=== PATIENT | female | born 1945 | race Caucasian/White ===

== ENCOUNTER 2024-01-05 06:06 | Day surgery (SDC) | payer MEDICARE ==
[~2024-01-05] VITALS: Ht 157.5 cm; Wt 62.7 kg
[~2024-01-05 06:06] MED LIST: LEVO50TA5 PO; LIDOCAINE 3.5 % 1ML OPHTH TOPICAL GEL OU ONE; ROSU20TA61 PO
[2024-01-05] MEDS ORDERED: LIDOCAINE 1% SDV 5ML VIAL As Ordered ONE (06:37)
[2024-01-05] MEDS ORDERED: fentaNYL 100 MCG/2 ML INJECTION As Ordered ONE (07:09)
[2024-01-05] MEDS ORDERED: MIDAZOLAM INJ 2MG/2ML VIAL As Ordered ONE (07:09)
[2024-01-05] MEDS ORDERED: POVIDONE-IODINE 5% OPHTH PREP SOL 30ML As Ordered ONE (07:19)
[2024-01-05] MEDS: mitoMYcin 0.2 MG/VIAL KIT FOR OPHTHALMIC USE As Ordered ONE (07:40)
[2024-01-05] MEDS: TOBRADEX OPHTH OINT 3.5 GM As Ordered ONE (07:40)
[2024-01-05 07:50] VITALS: BP 118/63; TEMP 97.4; O2SAT 96
== END 2024-01-05 08:10 | disposition home or self-care (01) ==
LOC: M SDC 06:06
PROVIDERS: ATTEND Ophthalmology
DX: H40.9 Unspecified glaucoma (principal); E03.9 Hypothyroidism, unspecified; E78.00 Pure hypercholesterolemia, unspecified; Z79.890 Hormone replacement therapy; Z79.899 Other long term (current) drug therapy; Z90.710 Acquired absence of both cervix and uterus
CPT/HCPCS: 66183; C1783; J2250; J3010; J7315

== ENCOUNTER 2024-04-26 12:16 | Day surgery (SDC) | payer MEDICARE ==
[~2024-04-26] VITALS: Ht 157.5 cm; Wt 60.4 kg
[~2024-04-26 12:16] MED LIST changes: +BRIM0.2S13; +CITRTAB18 PO; +XALA0.007
[2024-04-26] MEDS ORDERED: MIDAZOLAM INJ 2MG/2ML VIAL As Ordered ONE (14:21)
[2024-04-26] MEDS ORDERED: fentaNYL 100 MCG/2 ML INJECTION As Ordered ONE (14:21)
[2024-04-26] MEDS: mitoMYcin 0.2 MG/VIAL KIT FOR OPHTHALMIC USE As Ordered ONE (14:35)
[2024-04-26] MEDS: LIDOCAINE 1% SDV 5ML VIAL As Ordered ONE (14:40)
[2024-04-26] MEDS: LIDOCAINE 4% TOPICAL SOLN 50 ML BTL As Ordered ONE (14:40)
[2024-04-26] MEDS: TOBRADEX OPHTH OINT 3.5 GM As Ordered ONE (14:40)
[2024-04-26] MEDS: BETAMETHASONE SOLUSPAN 6MG/ML 5ML VIAL As Ordered ONE (14:40)
[2024-04-26] MEDS: TOBRAMYCIN 80MG/2ML VIAL As Ordered ONE (14:40)
[2024-04-26 14:50] VITALS: BP 123/61; TEMP 96.5; O2SAT 98
== END 2024-04-26 15:02 | disposition home or self-care (01) ==
LOC: M SDC 12:16
PROVIDERS: ATTEND Ophthalmology
DX: H40.10X0 Unspecified open-angle glaucoma, stage unspecified (principal); E03.9 Hypothyroidism, unspecified; E78.00 Pure hypercholesterolemia, unspecified; Z79.899 Other long term (current) drug therapy; Z90.710 Acquired absence of both cervix and uterus
CPT/HCPCS: 66183; C1783; J2250; J3010; J7315